=== PATIENT | male | born 1945 | race Two or more races ===

== ENCOUNTER → 2023-01-29 11:20 | Outpatient (CLI) | payer OTHER | END | disposition home or self-care (01) | LOC: LAB 11:20 | DX: N18.9 Chronic kidney disease, unspecified (principal) ==

== ENCOUNTER → 2023-02-04 | Outpatient (CLI) | payer OTHER | END | disposition home or self-care (01) | LOC: MRI 10:24 | DX: M54.40 Lumbago with sciatica, unspecified side (principal) | CPT/HCPCS: 72148 ==

== ENCOUNTER 2023-02-05 11:39 | Emergency (ER) | payer OTHER ==
[~2023-02-05] VITALS: Ht 172.7 cm; Wt 82.6 kg
== END 2023-02-05 19:21 | disposition designated cancer center or children's hospital (05) ==
LOC: ER 11:39
DX: I62.01 Nontraumatic acute subdural hemorrhage (principal); R42 Dizziness and giddiness; Z20.822 Contact with and (suspected) exposure to COVID-19

== ENCOUNTER 2023-03-29 10:46 | Outpatient (CLI) | payer OTHER | END 2023-03-29 11:00 | disposition home or self-care (01) | LOC: TOM 10:46 | DX: I62.03 Nontraumatic chronic subdural hemorrhage (principal); Z98.890 Other specified postprocedural states ==

== ENCOUNTER 2024-08-09 19:16 | Emergency (ER) | payer OTHER ==
[~2024-08-09] VITALS: Ht 172.7 cm; Wt 90.7 kg
[2024-08-09] MEDS ORDERED: SIMVASTATIN20 MG PO (19:23)
[2024-08-09] MEDS ORDERED: NIFEDIPINE ER30 M1 PO (19:23)
[2024-08-09] MEDS ORDERED: TAMSULOSIN HCL0.4 MG PO (19:23)
[2024-08-09] MEDS ORDERED: METOPROLOL SUCC50 MG PO (19:23)
[2024-08-09] MEDS ORDERED: CANDESARTAN CIL32 MG PO (19:23)
[2024-08-09] MEDS ORDERED: SYNTHROID125 MCG PO (19:23)
[2024-08-09] MEDS ORDERED: RISPERIDONE0.25 MG PO (19:24)
[2024-08-09 19:57] LABS: HEMATOCRIT 39.7 % (39.0-48.0); HEMOGLOBIN 13.3 g/dL (13-16.00); MEAN CELL VOLUME 92.5 fL (80.0-100.00); MEAN CORPUSCULAR HGB CONC 33.6 g/dl (32.0-36.0); PLATELET COUNT 180 K/uL (150-450); RED BLOOD COUNT 4.29 M/uL (4.00-6.00); RED CELL DISTRIBUTION WIDTH 14.2 % (11.5-14.5)
[2024-08-09] MEDS ORDERED: KETOROLAC TROMETHAMINE 60 MG VIAL IM ONE ×2 (22:04→22:15)
== END 2024-08-09 23:37 | disposition home or self-care (01) ==
LOC: ER 19:16
PROVIDERS: Emergency Medicine
DX: S09.8XXA Other specified injuries of head, initial encounter (principal); W19.XXXA Unspecified fall, initial encounter; Y93.89 Activity, other specified; Y92.89 Other specified places as the place of occurrence of the external cause; Y99.8 Other external cause status; I10 Essential (primary) hypertension
CPT/HCPCS: 36415; 70450; 70486; 71111; 72040; 96372; 99284; J1885

== ENCOUNTER → 2024-09-05 | Emergency (ER) | payer OTHER ==
[~2024-09-05] VITALS: Ht 165.1 cm; Wt 86.2 kg
[~2024-09-05] MED LIST: ARICEPT5 MG; ATACAND4 MG; CANDESARTAN CIL32 MG PO; CITALOPRAM HBR10 MG PO; COZAAR25 MG; FLONASE16 GM NS; MAXIMUM D3325 MCG PO; METOPROLOL SUCC50 MG PO; NIFEDIPINE ER30 M1 PO; RISPERIDONE0.25 MG PO; SIMVASTATIN20 MG PO; SIMVASTATIN5 MG; SYNTHROID125 MCG PO; TAMS0.4C; TAMSULOSIN HCL0.4 MG PO
[2024-09-05 23:15] LABS: HEMATOCRIT 38.9 % (39.0-48.0); HEMOGLOBIN 13.4 g/dL (13-16.00); MEAN CELL VOLUME 91.1 fL (80.0-100.00); MEAN CORPUSCULAR HEMOGLOBIN 31.4 pg (27.00-32.0); MEAN CORPUSCULAR HGB CONC 34.4 g/dl (32.0-36.0); PLATELET COUNT 180 K/uL (150-450); RED BLOOD COUNT 4.27 M/uL (4.00-6.00); RED CELL DISTRIBUTION WIDTH 13.8 % (11.5-14.5)
[2024-09-05 23:36] LABS: ALBUMIN 3.4 gm/dL (3.4-5.0); BILIRUBIN TOTAL 0.41 mg/dL (0.3-1.2); CALCIUM 8.9 mg/dL (8.5-10.1); CREATININE SERUM 1.03 mg/dL (0.70-1.30); GFR 69.66; GLOBULINA 3.1 G/DL (2.4-3.5); POTASSIUM 4.55 mEq/L (3.5-5.1); TOTAL PROTEIN 6.5 gm/dL (6.4-8.2)
[2024-09-06 00:03] LABS: URINE APPEARANCE Clear; URINE BILIRRUBIN Negative (NEGATIVE); URINE BLOOD Negative; URINE COLOR Yellow; URINE GLUCOSE Negative (NEGATIVE); URINE KETONE Negative (NEGATIVE); URINE LEUKOCYTE Negative; URINE NITRATE Negative; URINE PROTEIN Negative (NEGATIVE); URINE UROBILINOGEN 0.2 E.U./dl
[2024-09-06 00:06] LABS: URINE BACTERIA 2.5 uL (0.0-1933); URINE EPITHELIAL CELLS 1.3 uL (0.0-38.8); URINE RBC 3.2 uL (0.0-20.8); URINE WBC 2.6 uL (0.0-23.2)
[2024-09-06 01:07] LABS: INR 1.03; PROTHROMBIN TIME 11.2 SECONDS (9.0-11.5)
== END | disposition left against medical advice (07) ==
LOC: ER 22:24
PROVIDERS: General Practice
DX: I62.00 Nontraumatic subdural hemorrhage, unspecified (principal); G30.8 Other Alzheimer's disease; F02.80 Dementia in other diseases classified elsewhere, unspecified severity, without behavioral disturbance, psychotic disturbance, mood disturbance, and anxiety; E78.00 Pure hypercholesterolemia, unspecified; I10 Essential (primary) hypertension; N40.0 Benign prostatic hyperplasia without lower urinary tract symptoms; Z20.822 Contact with and (suspected) exposure to COVID-19

== ENCOUNTER → 2024-10-02 | Emergency (ER) | payer OTHER ==
[~2024-10-02] VITALS: Ht 170.2 cm; Wt 90.7 kg
[2024-10-02 23:28] LABS: HEMATOCRIT 40.1 % (39.0-48.0); HEMOGLOBIN 13.5 g/dL (13-16.00); MEAN CELL VOLUME 92.3 fL (80.0-100.00); MEAN CORPUSCULAR HEMOGLOBIN 31.1 pg (27.00-32.0); MEAN CORPUSCULAR HGB CONC 33.7 g/dl (32.0-36.0); PLATELET COUNT 193 K/uL (150-450); RED BLOOD COUNT 4.34 M/uL (4.00-6.00); RED CELL DISTRIBUTION WIDTH 13.6 % (11.5-14.5)
[2024-10-02 23:46] LABS: CALCIUM 9.1 mg/dL (8.5-10.1); CREATININE SERUM 1.76 mg/dL (0.70-1.30); GFR 37.54; POTASSIUM 4.06 mEq/L (3.5-5.1)
[2024-10-03 10:48] LABS: INR 1.05; PARTIAL THROMBOPLASTIN TIME 23.8 SECONDS (22.0-34.0); PROTHROMBIN TIME 11.4 SECONDS (9.0-11.5)
[2024-10-03 11:52] LABS: PH,URINE 5.5 (5.0-8.0); URINE APPEARANCE Clear; URINE BILIRRUBIN Negative (NEGATIVE); URINE BLOOD Negative; URINE COLOR Yellow; URINE GLUCOSE Negative (NEGATIVE); URINE KETONE Trace (NEGATIVE); URINE LEUKOCYTE Negative; URINE NITRATE Negative; URINE PROTEIN Negative (NEGATIVE); URINE UROBILINOGEN 0.2 E.U./dl
[2024-10-03 11:53] LABS: URINE BACTERIA 35.2 uL (0.0-1933); URINE EPITHELIAL CELLS 2.6 uL (0.0-38.8); URINE RBC 13.7 uL (0.0-20.8); URINE WBC 2.4 uL (0.0-23.2)
[2024-10-03 11:55] LABS: URINE CAST 0.76 uL (0.0-1.40)
== END | disposition left against medical advice (07) ==
LOC: ER 21:54
PROVIDERS: Emergency Medicine
DX: R41.0 Disorientation, unspecified (principal); Z20.822 Contact with and (suspected) exposure to COVID-19; I10 Essential (primary) hypertension; E03.8 Other specified hypothyroidism

== ENCOUNTER 2025-02-28 21:20 | Emergency (ER) | payer OTHER ==
[~2025-02-28] VITALS: Ht 172.7 cm; Wt 81.6 kg
[2025-02-28] MEDS ORDERED: RISPERDAL1 MG/1 ML (21:46)
[2025-02-28] MEDS ORDERED: SEROQUEL25 MG (21:46)
[2025-02-28 22:34] LABS: HEMOGLOBIN 14.7 g/dL (13-16.00); MEAN CELL VOLUME 89.9 fL (80.0-100.00); MEAN CORPUSCULAR HEMOGLOBIN 30.7 pg (27.00-32.0); MEAN CORPUSCULAR HGB CONC 34.2 g/dl (32.0-36.0); PLATELET COUNT 236 K/uL (150-450); RED BLOOD COUNT 4.78 M/uL (4.00-6.00); RED CELL DISTRIBUTION WIDTH 13.6 % (11.5-14.5)
[2025-02-28 22:55] LABS: ALBUMIN 3.2 gm/dL (3.4-5.0); BILIRUBIN TOTAL 0.3 mg/dL (0.3-1.2); CREATININE SERUM 1.08 mg/dL (0.70-1.30); GFR 65.95; GLOBULINA 3.7 G/DL (2.4-3.5); POTASSIUM 4.25 mEq/L (3.5-5.1); TOTAL PROTEIN 6.9 gm/dL (6.4-8.2)
[2025-02-28 23:21] LABS: COVID-19 AG NEGATIVE (NEGATIVE); INFLUENZA A AG NEGATIVE (NEGATIVE)
[2025-02-28 23:24] LABS: ABG PH 7.439 (7.35-7.45); ABG PO2 68.4 mmHg (80-100); ABG pCO2 39.9 mmHg (35-45); BASE EXCESS 2.2 mmol/l; BICARBONATE 26.4 mmol/l (23-25); SaO2 94.2 %; Tco2 27.6 mmol/l
[2025-02-28 23:28] LABS: allen test SATISFACTORY; mode ROOM AIR; o2 21 %; puncture site RADIAL RIGHT
== END 2025-03-01 11:53 | disposition home or self-care (01) ==
LOC: ER → EDBD 21:20 → ER 21:20
PROVIDERS: Emergency Medicine
DX: J40 Bronchitis, not specified as acute or chronic (principal); G30.8 Other Alzheimer's disease; F02.80 Dementia in other diseases classified elsewhere, unspecified severity, without behavioral disturbance, psychotic disturbance, mood disturbance, and anxiety; I10 Essential (primary) hypertension; Z85.828 Personal history of other malignant neoplasm of skin; Z20.822 Contact with and (suspected) exposure to COVID-19

== ENCOUNTER 2025-03-08 19:01 | Inpatient (IN) | payer OTHER ==
[~2025-03-08] VITALS: Ht 152.4 cm; Wt 77.1 kg
[~2025-03-08 19:01] MED LIST changes: +RISPERDAL1 MG/1 ML; +SEROQUEL25 MG
[2025-03-08 20:09] LABS: HEMATOCRIT 43.5 % (39.0-48.0); HEMOGLOBIN 14.4 g/dL (13-16.00); MEAN CELL VOLUME 90.9 fL (80.0-100.00); MEAN CORPUSCULAR HEMOGLOBIN 30.1 pg (27.00-32.0); MEAN CORPUSCULAR HGB CONC 33.1 g/dl (32.0-36.0); PLATELET COUNT 239 K/uL (150-450); RED BLOOD COUNT 4.78 M/uL (4.00-6.00); RED CELL DISTRIBUTION WIDTH 13.9 % (11.5-14.5)
[2025-03-08 20:44] LABS: ALBUMIN 2.8 gm/dL (3.4-5.0); BILIRUBIN TOTAL 0.52 mg/dL (0.3-1.2); CALCIUM 9.1 mg/dL (8.5-10.1); CREATININE SERUM 1.76 mg/dL (0.70-1.30); GFR 37.54; GLOBULINA 4.6 G/DL (2.4-3.5); POTASSIUM 5.51 mEq/L (3.5-5.1); TOTAL PROTEIN 7.4 gm/dL (6.4-8.2)
[2025-03-08] MEDS ORDERED: CEFTRIAXONE SODIUM 1,000 MG VIAL ONE (21:12)
[2025-03-08] MEDS ORDERED: CEFTRIAXONE SODIUM 1,000 MG VIAL IV ONE (21:15)
[2025-03-08 21:24] LABS: INR 1.1; PARTIAL THROMBOPLASTIN TIME 27.2 SECONDS (22.0-34.0); PROTHROMBIN TIME 11.9 SECONDS (9.0-11.5)
[2025-03-08 21:37] LABS: ABG PH 7.425 (7.35-7.45); ABG PO2 74.7 mmHg (80-100); ABG pCO2 39.9 mmHg (35-45); BASE EXCESS 1.2 mmol/l; BICARBONATE 25.5 mmol/l (23-25); Tco2 26.8 mmol/l; allen test SATISFACTORY; mode ROOM AIR; o2 21 %; puncture site RADIAL RIGHT
[2025-03-08 21:38] LABS: SaO2 95.2 %
[2025-03-08] MEDS ORDERED: 0.9 % SODIUM CHLORIDE 1,000 ML IV ONE (21:45)
[2025-03-08 21:52] LABS: URINE APPEARANCE Cloudy; URINE BILIRRUBIN Small (NEGATIVE); URINE BLOOD Negative; URINE COLOR Dark Yellow; URINE GLUCOSE Negative (NEGATIVE); URINE KETONE Negative (NEGATIVE); URINE LEUKOCYTE Negative; URINE NITRATE Negative; URINE PROTEIN 30 (NEGATIVE)
[2025-03-08 21:56] LABS: URINE BACTERIA 36.7 uL (0.0-1933); URINE CAST 15.17 uL (0.0-1.40); URINE EPITHELIAL CELLS 32.2 uL (0.0-38.8); URINE RBC 16.6 uL (0.0-20.8); URINE WBC 20.5 uL (0.0-23.2)
[2025-03-08] MEDS ORDERED: SODIUM POLYSTYRENE SULFONATE 30G/8 TSP PO ONE (22:15)
[2025-03-08] MEDS ORDERED: 0.9 % SODIUM CHLORIDE 1,000 ML IV SCH (23:15)
[2025-03-09] MEDS ORDERED: IPRATROPIUM BROMIDE 0.5 MG/2.5 ML AMPUL.NEB IH SCH (01:00)
[2025-03-09] MEDS ORDERED: LEVOTHYROXINE SODIUM 125 MCG TABLET PO SCH (06:00)
[2025-03-09 06:21] LABS: HEMATOCRIT 37.7 % (39.0-48.0); HEMOGLOBIN 12.9 g/dL (13-16.00); MEAN CELL VOLUME 89.8 fL (80.0-100.00); MEAN CORPUSCULAR HEMOGLOBIN 30.7 pg (27.00-32.0); MEAN CORPUSCULAR HGB CONC 34.2 g/dl (32.0-36.0); PLATELET COUNT 193 K/uL (150-450); RED CELL DISTRIBUTION WIDTH 13.7 % (11.5-14.5)
[2025-03-09 07:58] LABS: ALBUMIN 2.5 gm/dL (3.4-5.0); BILIRUBIN TOTAL 0.39 mg/dL (0.3-1.2); CALCIUM 8.5 mg/dL (8.5-10.1); CREATININE SERUM 1.46 mg/dL (0.70-1.30); GFR 46.57; GLOBULINA 3.3 G/DL (2.4-3.5); POTASSIUM 4.48 mEq/L (3.5-5.1); T4 FREE 1.04 NG/ML (0.76-1.46); TOTAL PROTEIN 5.8 gm/dL (6.4-8.2)
[2025-03-09 08:00] LABS: TSH 5.02 uIU/mL (0.358-3.74)
[2025-03-09 08:53] VITALS: BP 179/71
[2025-03-09] MEDS ORDERED: SODIUM POLYSTYRENE SULFONATE 15 G/4 TSP TSP PO SCH (09:00)
[2025-03-09] MEDS ORDERED: TAMSULOSIN HCL 0.4 MG CAP PO SCH (09:00)
[2025-03-09] MEDS ORDERED: CANDESARTAN CILEXETIL 16 MG TABLET PO SCH (09:00)
[2025-03-09] MEDS ORDERED: QUETIAPINE FUMARATE 25 MG TABLET PO SCH (09:00)
[2025-03-09] MEDS ORDERED: SODIUM CHLORIDE 0.45 % 1,000 ML IV SCH (11:00)
[2025-03-09] MEDS ORDERED: PANTOPRAZOLE SODIUM 40 MG TABLET.DR PO NR (12:00)
[2025-03-09] MEDS ORDERED: QUETIAPINE FUMARATE 25 MG TABLET PO PRN (12:09)
[2025-03-09] MEDS ORDERED: ENALAPRILAT DIHYDRATE 1.25 MG/ML VIAL IV PRN (15:15)
[2025-03-09] MEDS ORDERED: DONEPEZIL HCL 10 MG TABLET PO SCH (17:00)
[2025-03-09 18:03] VITALS: BP 160/85; O2SAT 95
[2025-03-10 02:41] VITALS: BP 157/76; O2SAT 95
[2025-03-10 06:27] LABS: MEAN CELL VOLUME 89.3 fL (80.0-100.00); MEAN CORPUSCULAR HEMOGLOBIN 30.7 pg (27.00-32.0); MEAN CORPUSCULAR HGB CONC 34.4 g/dl (32.0-36.0); PLATELET COUNT 201 K/uL (150-450); RED BLOOD COUNT 4.25 M/uL (4.00-6.00); RED CELL DISTRIBUTION WIDTH 13.4 % (11.5-14.5)
[2025-03-10 06:53] LABS: ALBUMIN 2.5 gm/dL (3.4-5.0); BILIRUBIN TOTAL 0.51 mg/dL (0.3-1.2); CALCIUM 8.6 mg/dL (8.5-10.1); CREATININE SERUM 0.99 mg/dL (0.70-1.30); GFR 72.92; GLOBULINA 3.7 G/DL (2.4-3.5); MAGNESIUM 2.2 mg/dL (1.8-2.4); POTASSIUM 4.14 mEq/L (3.5-5.1); TOTAL PROTEIN 6.2 gm/dL (6.4-8.2)
[2025-03-10] MEDS ORDERED: PANTOPRAZOLE SODIUM 40 MG TABLET.DR PO SCH (09:00)
[2025-03-10] MEDS ORDERED: DEXTROSE 5 % IN WATER 1,000 ML IV SCH (09:45)
[2025-03-10 10:01] VITALS: BP 141/81; O2SAT 97
[2025-03-10] MEDS ORDERED: MULTIVIT-MIN/IRON FUM/FOLIC AC 1 TAB TABLET PO NR (12:00)
[2025-03-10] MEDS ORDERED: AMINO ACIDS/PROTEIN HYDROLYS 30 ML BLIST.PACK PO SCH (13:00)
[2025-03-10 16:20] VITALS: BP 157/82; O2SAT 95
[2025-03-10] MEDS ORDERED: ACETAMINOPHEN 500 MG GEL..CAP PO PRN (18:45)
[2025-03-11 00:18] LABS: CALCIUM 9.2 mg/dL (8.5-10.1); CREATININE SERUM 1.11 mg/dL (0.70-1.30); GFR 63.9; POTASSIUM 4.26 mEq/L (3.5-5.1)
[2025-03-11 01:57] VITALS: BP 141/90; O2SAT 94
[2025-03-11 07:02] LABS: HEMATOCRIT 38.9 % (39.0-48.0); HEMOGLOBIN 13.3 g/dL (13-16.00); MEAN CELL VOLUME 89.6 fL (80.0-100.00); MEAN CORPUSCULAR HEMOGLOBIN 30.7 pg (27.00-32.0); MEAN CORPUSCULAR HGB CONC 34.2 g/dl (32.0-36.0); PLATELET COUNT 225 K/uL (150-450); RED BLOOD COUNT 4.34 M/uL (4.00-6.00)
[2025-03-11 07:40] LABS: ALBUMIN 2.4 gm/dL (3.4-5.0); BILIRUBIN TOTAL 0.52 mg/dL (0.3-1.2); CALCIUM 8.7 mg/dL (8.5-10.1); CREATININE SERUM 0.88 mg/dL (0.70-1.30); GFR 83.54; GLOBULINA 3.9 G/DL (2.4-3.5); MAGNESIUM 2.2 mg/dL (1.8-2.4); PHOSPHOROUS 2.4 mg/dL (2.5-4.9); POTASSIUM 4.19 mEq/L (3.5-5.1); TOTAL PROTEIN 6.3 gm/dL (6.4-8.2)
[2025-03-11] MEDS ORDERED: MULTIVIT-MIN/IRON FUM/FOLIC AC 1 TAB TABLET PO SCH (09:00)
[2025-03-11] MEDS ORDERED: CANDESARTAN CILEXETIL 32 MG TABLET PO SCH (09:00)
[2025-03-11] MEDS ORDERED: ENOXAPARIN SODIUM 40 MG/0.4 ML SYRINGE SUBCUTANEO SCH (09:00)
[2025-03-11 10:15] VITALS: BP 146/86; O2SAT 98
[2025-03-11 17:28] VITALS: BP 120/90; O2SAT 94
[2025-03-11 18:47] LABS: INFLUENZA A AG NEGATIVE (NEGATIVE); INFLUENZA B AG NEGATIVE (NEGATIVE)
[2025-03-11] MEDS ORDERED: ONDANSETRON HCL 2 MG/ML VIAL IV PRN (20:45)
[2025-03-12 02:43] VITALS: BP 85/6; O2SAT 99
[2025-03-12 04:13] VITALS: BP 110/75; O2SAT 97
[2025-03-12 09:53] VITALS: BP 118/73; O2SAT 97
[2025-03-12] MEDS ORDERED: DEXTROSE 5 %-0.45 % SOD CHLORD 1,000 ML IV SCH (15:00)
[2025-03-12 16:44] VITALS: BP 102/65
[2025-03-12 17:49] LABS: HEMATOCRIT 40.4 % (39.0-48.0); HEMOGLOBIN 13.4 g/dL (13-16.00); MEAN CELL VOLUME 91.8 fL (80.0-100.00); MEAN CORPUSCULAR HEMOGLOBIN 30.5 pg (27.00-32.0); MEAN CORPUSCULAR HGB CONC 33.2 g/dl (32.0-36.0); PLATELET COUNT 239 K/uL (150-450); RED CELL DISTRIBUTION WIDTH 13.9 % (11.5-14.5)
[2025-03-12 18:12] LABS: ALBUMIN 2.5 gm/dL (3.4-5.0); BILIRUBIN TOTAL 0.43 mg/dL (0.3-1.2); CALCIUM 8.8 mg/dL (8.5-10.1); CREATININE SERUM 2.19 mg/dL (0.70-1.30); GFR 29.17; MAGNESIUM 2.3 mg/dL (1.8-2.4); PHOSPHOROUS 2.8 mg/dL (2.5-4.9); POTASSIUM 4.16 mEq/L (3.5-5.1); TOTAL PROTEIN 6.5 gm/dL (6.4-8.2)
[2025-03-13 01:26] VITALS: BP 109/74; O2SAT 92
[2025-03-13 08:10] VITALS: BP 110/68; O2SAT 93
[2025-03-13] MEDS ORDERED: hydrALAZINE HCL 20 MG VIAL IV PRN (09:00)
[2025-03-13] MEDS ORDERED: SODIUM CHLORIDE 0.45 % 1,000 ML IV SCH (11:00)
[2025-03-13] MEDS ORDERED: 0.9 % SODIUM CHLORIDE 1,000 ML IV SCH (11:00)
[2025-03-13 16:53] VITALS: BP 126/80
[2025-03-13] MEDS ORDERED: LOPERAMIDE HCL 2 MG CAPSULE PO NR (17:00)
[2025-03-14 01:47] VITALS: BP 125/75
[2025-03-14] MEDS ORDERED: LEVOTHYROXINE SODIUM 125 MCG TABLET PO SCH (06:00)
[2025-03-14] MEDS ORDERED: LEVOTHYROXINE SODIUM 150 MCG TABLET PO SCH (06:00)
[2025-03-14 07:44] LABS: CALCIUM 8.1 mg/dL (8.5-10.1); CREATININE SERUM 0.98 mg/dL (0.70-1.30); GFR 73.78; POTASSIUM 3.45 mEq/L (3.5-5.1)
[2025-03-14 08:48] VITALS: BP 150/64; O2SAT 97
[2025-03-14] MEDS ORDERED: DEXTROSE 5 %-0.45 % SOD CHLORD 1,000 ML IV SCH (11:00)
[2025-03-14] MEDS ORDERED: PAROXETINE HCL 20 MG TABLET PO NR (11:30)
[2025-03-14] MEDS ORDERED: POTASSIUM CHLORIDE IN WATER 40 MEQ/100 ML PIGGYBAG IV SCH (13:00)
[2025-03-14] MEDS ORDERED: LORazepam 2 MG/ML VIAL IV PRN (15:00)
[2025-03-14 17:06] VITALS: BP 137/80
[2025-03-14] MEDS ORDERED: RISPERIDONE 1 MG TABLET PO SCH (21:00)
[2025-03-15 01:04] VITALS: BP 141/78; O2SAT 96
[2025-03-15 08:18] VITALS: BP 165/72; O2SAT 96
[2025-03-15] MEDS ORDERED: PAROXETINE HCL 20 MG TABLET PO SCH (09:00)
[2025-03-15] MEDS ORDERED: FAMOTIDINE/PF 20 MG/2 ML VIAL IV SCH (09:32)
[2025-03-15] MEDS ORDERED: LEVOTHYROXINE SODIUM 100 MCG/VIAL VIAL IV SCH (12:00)
[2025-03-15 12:01] LABS: CALCIUM 8.6 mg/dL (8.5-10.1); GFR 13.07; PHOSPHOROUS 3.9 mg/dL (2.5-4.9); POTASSIUM 4.99 mEq/L (3.5-5.1)
[2025-03-15 12:30] LABS: CREATININE SERUM 4.39 mg/dL (0.70-1.30)
[2025-03-15] MEDS ORDERED: AMINO ACIDS 4.25 %/DEXTROSE 5% 1,000 ML PERIFERAL SCH (17:00)
[2025-03-15 17:07] VITALS: BP 115/60
[2025-03-17 02:00] VITALS: BP 174/101; O2SAT 96
[2025-03-17 07:42] LABS: ALBUMIN 1.9 gm/dL (3.4-5.0); BILIRUBIN TOTAL 0.34 mg/dL (0.3-1.2); CREATININE SERUM 0.82 mg/dL (0.70-1.30); GFR 90.63; GLOBULINA 3.4 G/DL (2.4-3.5); MAGNESIUM 1.7 mg/dL (1.8-2.4); POTASSIUM 3.54 mEq/L (3.5-5.1); TOTAL PROTEIN 5.3 gm/dL (6.4-8.2)
[2025-03-17 09:14] VITALS: BP 129/79
[2025-03-17 17:57] VITALS: BP 127/70; O2SAT 96
[2025-03-18 02:23] VITALS: BP 117/68; O2SAT 96
[2025-03-18 09:35] VITALS: BP 145/79; O2SAT 94
[2025-03-18] MEDS ORDERED: DEXTROSE 5 % IN WATER 1,000 ML IV SCH (14:45)
[2025-03-18 16:57] VITALS: BP 140/60; O2SAT 99
[2025-03-19 03:08] VITALS: BP 124/64; O2SAT 98
[2025-03-19 04:34] LABS: CALCIUM 7.8 mg/dL (8.5-10.1); CREATININE SERUM 0.72 mg/dL (0.70-1.30); GFR 105.31; MAGNESIUM 1.5 mg/dL (1.8-2.4); PHOSPHOROUS 2.4 mg/dL (2.5-4.9); POTASSIUM 3.45 mEq/L (3.5-5.1)
[2025-03-19 06:42] LABS: ALBUMIN 1.6 gm/dL (3.4-5.0); CALCIUM 7.6 mg/dL (8.5-10.1); CREATININE SERUM 0.65 mg/dL (0.70-1.30); GFR 118.5; PHOSPHOROUS 3.1 mg/dL (2.5-4.9); POTASSIUM 3.25 mEq/L (3.5-5.1)
[2025-03-19 06:58] LABS: HEMATOCRIT 30.7 % (39.0-48.0); HEMOGLOBIN 10.2 g/dL (13-16.00); MEAN CELL VOLUME 89.1 fL (80.0-100.00); MEAN CORPUSCULAR HEMOGLOBIN 29.8 pg (27.00-32.0); MEAN CORPUSCULAR HGB CONC 33.4 g/dl (32.0-36.0); PLATELET COUNT 268 K/uL (150-450); RED BLOOD COUNT 3.44 M/uL (4.00-6.00); RED CELL DISTRIBUTION WIDTH 13.2 % (11.5-14.5)
[2025-03-19 07:58] VITALS: BP 130/72
[2025-03-19] MEDS ORDERED: POTASSIUM CHLORIDE IN WATER 100 ML IV NR (12:45)
[2025-03-19 18:41] VITALS: BP 148/82; O2SAT 95
[2025-03-20 02:13] VITALS: BP 152/74; O2SAT 98
[2025-03-20 09:57] VITALS: BP 160/71; O2SAT 94
[2025-03-20 17:01] VITALS: BP 143/71
[2025-03-21 03:31] VITALS: BP 153/75; O2SAT 95
[2025-03-21 09:10] VITALS: BP 156/76; O2SAT 94
[2025-03-21] MEDS ORDERED: ACETAMINOPHEN 500 MG GEL..CAP PO PRN (16:30)
[2025-03-21 17:29] VITALS: BP 140/72
[2025-03-22 03:41] VITALS: BP 174/84; O2SAT 95
[2025-03-22 08:33] VITALS: BP 123/69
[2025-03-22] MEDS ORDERED: CLONIDINE HCL TD SCH (09:00)
[2025-03-22] MEDS ORDERED: [UNRECOGNIZED DRUG - OTHER] TD SCH (09:00)
[2025-03-22 18:00] VITALS: BP 122/71; O2SAT 100
[2025-03-22 22:15] LABS: HEMATOCRIT 33.7 % (39.0-48.0); HEMOGLOBIN 11.3 g/dL (13-16.00); MEAN CORPUSCULAR HEMOGLOBIN 29.2 pg (27.00-32.0); MEAN CORPUSCULAR HGB CONC 33.6 g/dl (32.0-36.0); PLATELET COUNT 399 K/uL (150-450); RED BLOOD COUNT 3.87 M/uL (4.00-6.00); RED CELL DISTRIBUTION WIDTH 13.5 % (11.5-14.5)
[2025-03-22 22:35] LABS: ALBUMIN 1.8 gm/dL (3.4-5.0); BILIRUBIN TOTAL 0.42 mg/dL (0.3-1.2); CALCIUM 8.4 mg/dL (8.5-10.1); CREATININE SERUM 0.82 mg/dL (0.70-1.30); GFR 90.63; GLOBULINA 4.2 G/DL (2.4-3.5); POTASSIUM 3.2 mEq/L (3.5-5.1)
[2025-03-22 22:36] LABS: PHOSPHOROUS 2.3 mg/dL (2.5-4.9)
[2025-03-23] VITALS: BP 148/74; O2SAT 95
[2025-03-23] MEDS ORDERED: VANCOMYCIN HCL 1,000 MG VIAL IV SCH (09:00)
[2025-03-23] MEDS ORDERED: CEFTRIAXONE SODIUM 2,000 MG in 0.9 % SODIUM CHLORIDE 100 ML IV SCH (09:00)
[2025-03-23] MEDS ORDERED: POTASSIUM CHLORIDE IN WATER 100 ML IV SCH (09:00)
[2025-03-23] MEDS ORDERED: EMOLLIENTS 6 OZ BOTTLE TOP SCH (09:00)
[2025-03-23 09:09] VITALS: BP 150/84; O2SAT 97
[2025-03-23 16:19] LABS: URINE APPEARANCE Cloudy; URINE BILIRRUBIN Negative (NEGATIVE); URINE BLOOD Large; URINE CAST 3.68 uL (0.0-1.40); URINE COLOR Yellow; URINE EPITHELIAL CELLS 29.4 uL (0.0-38.8); URINE GLUCOSE Negative (NEGATIVE); URINE KETONE Negative (NEGATIVE); URINE LEUKOCYTE Moderate; URINE NITRATE Positive; URINE PROTEIN 30 (NEGATIVE); URINE RBC 148.1 uL (0.0-20.8); URINE WBC 360.5 uL (0.0-23.2)
[2025-03-23 16:52] LABS: URINE BACTERIA > 9821.5 uL (0.0-1933)
[2025-03-23 20:49] VITALS: BP 115/89
[2025-03-24 01:11] VITALS: BP 130/88; O2SAT 99
[2025-03-24 08:00] VITALS: BP 143/82; O2SAT 95
[2025-03-24] MEDS ORDERED: CEFTRIAXONE SODIUM 2,000 MG VIAL ONE (08:19)
[2025-03-24 16:29] LABS: HEMATOCRIT 35.6 % (39.0-48.0); HEMOGLOBIN 11.7 g/dL (13-16.00); MEAN CELL VOLUME 88.4 fL (80.0-100.00); MEAN CORPUSCULAR HGB CONC 32.8 g/dl (32.0-36.0); PLATELET COUNT 378 K/uL (150-450); RED BLOOD COUNT 4.02 M/uL (4.00-6.00); RED CELL DISTRIBUTION WIDTH 13.5 % (11.5-14.5)
[2025-03-24 18:28] VITALS: BP 108/77; O2SAT 96
[2025-03-24 18:37] LABS: CALCIUM 8.3 mg/dL (8.5-10.1); CREATININE SERUM 1.26 mg/dL (0.70-1.30); GFR 55.21; MAGNESIUM 1.7 mg/dL (1.8-2.4); PHOSPHOROUS 2.4 mg/dL (2.5-4.9); POTASSIUM 3.41 mEq/L (3.5-5.1)
[2025-03-25 03:01] VITALS: BP 148/85
[2025-03-25] MEDS ORDERED: CEFTRIAXONE SODIUM 2,000 MG VIAL ONE (08:14)
[2025-03-25] MEDS ORDERED: MEROPENEM 500 MG/VIAL VIAL IV STA (09:08)
[2025-03-25 09:11] VITALS: BP 127/70; O2SAT 100
[2025-03-25] MEDS ORDERED: POTASSIUM CHLORIDE IN WATER 100 ML IV SCH (09:21)
[2025-03-25] MEDS ORDERED: MEROPENEM 500 MG/VIAL VIAL IV SCH ×2 (17:00→18:00)
[2025-03-25 18:04] VITALS: BP 127/78; O2SAT 96
[2025-03-25] MEDS ORDERED: ACETAMINOPHEN 500 MG GEL..CAP PO SCH (20:00)
[2025-03-26 00:18] VITALS: BP 119/76
[2025-03-26] MEDS ORDERED: LEVOTHYROXINE SODIUM 150 MCG TABLET PO SCH (06:00)
[2025-03-26 09:35] VITALS: BP 126/83; O2SAT 96
[2025-03-26 10:10] LABS: HEMATOCRIT 32.1 % (39.0-48.0); HEMOGLOBIN 10.6 g/dL (13-16.00); MEAN CELL VOLUME 89.6 fL (80.0-100.00); MEAN CORPUSCULAR HEMOGLOBIN 29.6 pg (27.00-32.0); MEAN CORPUSCULAR HGB CONC 33.1 g/dl (32.0-36.0); PLATELET COUNT 298 K/uL (150-450); RED BLOOD COUNT 3.58 M/uL (4.00-6.00); RED CELL DISTRIBUTION WIDTH 13.5 % (11.5-14.5)
[2025-03-26 17:23] VITALS: BP 138/82; O2SAT 95
[2025-03-27 02:18] VITALS: BP 136/71; O2SAT 99
[2025-03-27 09:31] LABS: HEMATOCRIT 31.4 % (39.0-48.0); HEMOGLOBIN 10.7 g/dL (13-16.00); MEAN CELL VOLUME 87.3 fL (80.0-100.00); MEAN CORPUSCULAR HEMOGLOBIN 29.8 pg (27.00-32.0); MEAN CORPUSCULAR HGB CONC 34.1 g/dl (32.0-36.0); PLATELET COUNT 280 K/uL (150-450); RED BLOOD COUNT 3.59 M/uL (4.00-6.00); RED CELL DISTRIBUTION WIDTH 13.6 % (11.5-14.5)
[2025-03-27 10:21] LABS: ALBUMIN 1.4 gm/dL (3.4-5.0); CALCIUM 7.9 mg/dL (8.5-10.1); CREATININE SERUM 1.15 mg/dL (0.70-1.30); GFR 61.34; MAGNESIUM 2.1 mg/dL (1.8-2.4); PHOSPHOROUS 3.1 mg/dL (2.5-4.9); POTASSIUM 3.27 mEq/L (3.5-5.1)
[2025-03-27 15:40] VITALS: BP 161/97; O2SAT 98
[2025-03-28 02:32] VITALS: BP 110/66; O2SAT 95
[2025-03-28 09:21] VITALS: BP 129/66; O2SAT 96
[2025-03-28 18:00] VITALS: BP 123/73; O2SAT 96
[2025-03-29 01:57] VITALS: BP 132/73
[2025-03-29 06:20] LABS: HEMATOCRIT 31.4 % (39.0-48.0); HEMOGLOBIN 10.4 g/dL (13-16.00); MEAN CELL VOLUME 87.9 fL (80.0-100.00); MEAN CORPUSCULAR HEMOGLOBIN 29.2 pg (27.00-32.0); MEAN CORPUSCULAR HGB CONC 33.2 g/dl (32.0-36.0); PLATELET COUNT 359 K/uL (150-450); RED BLOOD COUNT 3.57 M/uL (4.00-6.00); RED CELL DISTRIBUTION WIDTH 13.8 % (11.5-14.5)
[2025-03-29] MEDS ORDERED: FAMOTIDINE/PF 20 MG in 0.9 % SODIUM CHLORIDE 8 ML IV PUSH SCH (09:00)
[2025-03-29] MEDS ORDERED: FAMOTIDINE/PF 20 MG/2 ML VIAL ONE (09:00)
[2025-03-29] MEDS ORDERED: HALOPERIDOL LACTATE 5 MG/ML AMPUL IM SCH (09:00)
[2025-03-29] MEDS ORDERED: LEVOTHYROXINE SODIUM 100 MCG/VIAL VIAL IV SCH (09:00)
[2025-03-29] MEDS ORDERED: BUDESONIDE 0.5 MG/2 ML AMPUL.NEB IH SCH (09:00)
[2025-03-29 11:33] VITALS: BP 130/77; O2SAT 95
[2025-03-29 13:09] LABS: CALCIUM 7.8 mg/dL (8.5-10.1); CREATININE SERUM 0.88 mg/dL (0.70-1.30); GFR 83.54; POTASSIUM 3.74 mEq/L (3.5-5.1)
[2025-03-29 13:14] LABS: PHOSPHOROUS 2.9 mg/dL (2.5-4.9)
[2025-03-29] MEDS ORDERED: METRONIDAZOLE/SODIUM CHLORIDE 500 MG/100 ML PIGGYBACK IV SCH (17:00)
[2025-03-29 18:12] VITALS: BP 122/70; O2SAT 96
[2025-03-29] MEDS ORDERED: DIPHENHYDRAMINE HCL 50 MG/ML VIAL 1ML IM SCH (21:00)
[2025-03-29] MEDS ORDERED: CEFEPIME HCL 2,000 MG VIAL IV SCH (21:00)
[2025-03-30 01:00] VITALS: BP 135/69; O2SAT 99
[2025-03-30] MEDS ORDERED: ACETAMINOPHEN 650 MG SUPP.RECT RECTAL PRN (08:15)
[2025-03-30 09:37] VITALS: BP 135/78; O2SAT 97
[2025-03-30] MEDS ORDERED: IPRATROPIUM BROMIDE 0.5 MG/2.5 ML AMPUL.NEB IH SCH (12:00)
[2025-03-30 17:33] VITALS: BP 120/66; O2SAT 95
[2025-03-31 01:21] VITALS: BP 117/68; O2SAT 95
[2025-03-31] MEDS ORDERED: KETOROLAC TROMETHAMINE 30 MG VIAL IV NR (09:15)
[2025-03-31 09:40] VITALS: BP 151/77; O2SAT 97
[2025-03-31] MEDS ORDERED: KETOROLAC TROMETHAMINE 30 MG VIAL IV SCH (14:00)
[2025-03-31 16:00] VITALS: BP 95/55; O2SAT 97
[2025-03-31] MEDS ORDERED: FAMOTIDINE/PF 20 MG/2 ML VIAL ONE (16:10)
[2025-04-01 01:39] VITALS: BP 138/66; O2SAT 97
[2025-04-01 08:00] VITALS: BP 133/67; O2SAT 98
[2025-04-01 16:16] VITALS: BP 130/79
[2025-04-02 01:11] VITALS: BP 153/76; O2SAT 95
[2025-04-02 08:28] VITALS: BP 168/71; O2SAT 97
[2025-04-02] MEDS ORDERED: 0.9 % SODIUM CHLORIDE 10 ML VIAL IJ ONE (08:44)
[2025-04-02 16:38] VITALS: BP 147/73
[2025-04-03 02:58] VITALS: BP 135/68; O2SAT 97
[2025-04-03 08:00] VITALS: BP 130/72; O2SAT 100
[2025-04-03 17:31] VITALS: BP 138/82
[2025-04-03 17:35] VITALS: BP 129/74
[2025-04-04 01:45] VITALS: BP 130/67
[2025-04-04 01:45] LABS: URINE APPEARANCE Turbid; URINE BILIRRUBIN Negative (NEGATIVE); URINE BLOOD Large; URINE COLOR Dark Yellow; URINE GLUCOSE Negative (NEGATIVE); URINE KETONE Negative (NEGATIVE); URINE LEUKOCYTE Moderate; URINE NITRATE Negative; URINE UROBILINOGEN 0.2 E.U./dl
[2025-04-04 01:49] LABS: URINE BACTERIA 1578.1 uL (0.0-1933); URINE RBC 1311.9 uL (0.0-20.8); URINE WBC 600.3 uL (0.0-23.2)
[2025-04-04 01:52] LABS: URINE CAST > 21.83 uL (0.0-1.40); URINE EPITHELIAL CELLS > 201.7 uL (0.0-38.8); URINE PROTEIN 100 (NEGATIVE)
[2025-04-04 09:58] VITALS: BP 146/78; O2SAT 98
[2025-04-04 17:21] VITALS: BP 122/80; O2SAT 94
[2025-04-04 18:53] LABS: ALBUMIN 1.1 gm/dL (3.4-5.0); BILIRUBIN TOTAL 0.27 mg/dL (0.3-1.2); CALCIUM 7.2 mg/dL (8.5-10.1); CREATININE SERUM 2.17 mg/dL (0.70-1.30); GFR 29.48; PHOSPHOROUS 3.3 mg/dL (2.5-4.9); POTASSIUM 3.22 mEq/L (3.5-5.1); TOTAL PROTEIN 5.1 gm/dL (6.4-8.2)
[2025-04-04 19:03] LABS: BASO % 0.2 % (0.1-1.2); EOS # 0.08 (0.04-0.54); EOS % 0.4 % (0.7-7.0); HEMATOCRIT 28.7 % (40.1-51.0); HEMOGLOBIN 9.9 g/dL (13.7-17.5); LYMPH # 1.34 (1.18-3.74); LYMPH % 7.1 % (19.3-53.1); MEAN CORPUSCULAR HEMOGLOBIN 29.5 pg (25.6-32.2); MONO # 0.75 (0.24-0.82); NEUT # 16.61 (1.56-6.13); NEUT % 87.4 % (34.0-71.1); PLATELET COUNT 464 K/uL (163-369); RED BLOOD COUNT 3.36 M/uL (4.63-6.08); RED CELL DISTRIBUTION WIDTH 14.2 % (11.6-14.4)
[2025-04-04] MEDS ORDERED: POTASSIUM CHLORIDE IN WATER 40 MEQ/100 ML PIGGYBAG IV SCH (23:51)
[2025-04-05 01:18] VITALS: BP 135/71
[2025-04-05] MEDS ORDERED: POTASSIUM CHLORIDE IN WATER 40 MEQ/100 ML PIGGYBAG IV ONE (01:33)
[2025-04-05] MEDS ORDERED: DEXTROSE 5 %-0.45 % SOD CHLORD 1,000 ML IV SCH (07:45)
[2025-04-05] MEDS ORDERED: POTASSIUM CHLORIDE IN WATER 40 MEQ/100 ML PIGGYBAG IV SCH (09:00)
[2025-04-05 09:46] VITALS: BP 155/66; O2SAT 96
[2025-04-05 11:54] LABS: ALBUMIN 1.1 gm/dL (3.4-5.0); CREATININE SERUM 2.52 mg/dL (0.70-1.30); GFR 24.81; MAGNESIUM 1.9 mg/dL (1.8-2.4); PHOSPHOROUS 3.5 mg/dL (2.5-4.9)
[2025-04-05 12:20] LABS: POTASSIUM 7.18 mEq/L (3.5-5.1)
[2025-04-05 15:30] VITALS: BP 155/80; O2SAT 100
[2025-04-05 21:49] LABS: CALCIUM 7.1 mg/dL (8.5-10.1); CREATININE SERUM 2.72 mg/dL (0.70-1.30); GFR 22.72; POTASSIUM 3.66 mEq/L (3.5-5.1)
[2025-04-06] MEDS ORDERED: METRONIDAZOLE/SODIUM CHLORIDE 500 MG/100 ML PIGGYBACK IV SCH (01:00)
[2025-04-06 01:41] VITALS: BP 171/83; O2SAT 98
[2025-04-06] MEDS ORDERED: hydrALAZINE HCL 20 MG VIAL IV SCH ×2 (08:06→12:00)
[2025-04-06] MEDS ORDERED: CEFEPIME HCL 2,000 MG VIAL IV SCH (09:00)
[2025-04-06 09:16] LABS: BASO % 0.2 % (0.1-1.2); EOS # 0.08 (0.04-0.54); EOS % 0.7 % (0.7-7.0); LYMPH # 1.05 (1.18-3.74); LYMPH % 8.7 % (19.3-53.1); MEAN CORPUSCULAR HEMOGLOBIN 29.4 pg (25.6-32.2); MONO # 0.68 (0.24-0.82); MONO % 5.6 % (4.7-12.5); NEUT # 10.16 (1.56-6.13); NEUT % 83.8 % (34.0-71.1); PLATELET COUNT 356 K/uL (163-369); RED BLOOD COUNT 2.82 M/uL (4.63-6.08); RED CELL DISTRIBUTION WIDTH 14.7 % (11.6-14.4)
[2025-04-06 09:41] LABS: HEMATOCRIT 24.4 % (40.1-51.0); HEMOGLOBIN 8.3 g/dL (13.7-17.5)
[2025-04-06 09:55] VITALS: BP 141/68; O2SAT 97
[2025-04-06 09:57] LABS: CREATININE SERUM 2.97 mg/dL (0.70-1.30); GFR 20.52; POTASSIUM 3.67 mEq/L (3.5-5.1)
[2025-04-06] MEDS ORDERED: SOD FERRIC GLUC COMPLX/SUCROSE 62.5 MG in 0.9 % SODIUM CHLORIDE 50 ML IV SCH (12:00)
[2025-04-06] MEDS ORDERED: PIPERACILLIN/TAZOBACTAM SODIUM 2.25 GM VIAL IV SCH (12:00)
[2025-04-06 17:44] VITALS: BP 124/66; O2SAT 98
[2025-04-06] MEDS ORDERED: 0.9 % SODIUM CHLORIDE 1,000 ML IV SCH (21:00)
[2025-04-06] MEDS ORDERED: PANTOPRAZOLE SODIUM 80 MG in 0.9 % SODIUM CHLORIDE 100 ML IV SCH (23:15)
[2025-04-07 00:42] VITALS: BP 134/69; O2SAT 93
[2025-04-07] MEDS ORDERED: SOD FERRIC GLUC COMPLX/SUCROSE 62.5 MG/5 ML AMPUL IV ONE (08:30)
[2025-04-07] MEDS ORDERED: EPOETIN ALFA-EPBX 10,000 UNIT/ML VIAL (Retacrit) SUBCUTANEO SCH (09:00)
[2025-04-07 10:05] VITALS: BP 91/58; O2SAT 98
[2025-04-07 17:10] VITALS: BP 122/70; O2SAT 97
[2025-04-07 21:12] LABS: PHOSPHOROUS 3.6 mg/dL (2.5-4.9)
[2025-04-08 00:53] VITALS: BP 138/72; O2SAT 95
[2025-04-08 08:15] VITALS: BP 129/74; O2SAT 97
[2025-04-08 12:07] LABS: BASO % 0.3 % (0.1-1.2); EOS # 0.23 (0.04-0.54); LYMPH # 1.39 (1.18-3.74); LYMPH % 12.1 % (19.3-53.1); MEAN CORPUSCULAR HEMOGLOBIN 28.3 pg (25.6-32.2); MONO # 0.99 (0.24-0.82); MONO % 8.6 % (4.7-12.5); NEUT # 8.72 (1.56-6.13); NEUT % 75.7 % (34.0-71.1); PLATELET COUNT 283 K/uL (163-369); RED BLOOD COUNT 2.69 M/uL (4.63-6.08); RED CELL DISTRIBUTION WIDTH 15.2 % (11.6-14.4)
[2025-04-08 12:23] LABS: HEMATOCRIT 23.2 % (40.1-51.0); HEMOGLOBIN 7.6 g/dL (13.7-17.5)
[2025-04-08] MEDS ORDERED: FUROsemide 20 MG/2 ML VIAL IV SCH (12:30)
[2025-04-08 12:42] LABS: INR 1.42
[2025-04-08 12:49] LABS: PROTHROMBIN TIME 15.1 SECONDS (9.0-11.5)
[2025-04-08 13:09] LABS: BILIRUBIN TOTAL 0.45 mg/dL (0.3-1.2); CALCIUM 6.7 mg/dL (8.5-10.1); GLOBULINA 3.5 G/DL (2.4-3.5); POTASSIUM 3.49 mEq/L (3.5-5.1); TOTAL PROTEIN 4.5 gm/dL (6.4-8.2)
[2025-04-08 14:06] LABS: GFR 12.97
[2025-04-08 14:07] LABS: CREATININE SERUM 4.42 mg/dL (0.70-1.30)
[2025-04-08 17:54] VITALS: BP 140/84; O2SAT 95
[2025-04-09] VITALS: BP 162/80; O2SAT 97
[2025-04-09 08:40] VITALS: BP 123/67; O2SAT 99
[2025-04-09 16:38] VITALS: BP 145/77; O2SAT 95
[2025-04-09] MEDS ORDERED: PIPERACILLIN/TAZOBACTAM SODIUM 4.5 GM VIAL IV SCH (17:00)
[2025-04-10 01:40] VITALS: BP 167/96
[2025-04-10 01:45] VITALS: BP 137/81; O2SAT 97
[2025-04-10 07:56] LABS: ALBUMIN 1.4 gm/dL (3.4-5.0); BILIRUBIN TOTAL 0.67 mg/dL (0.3-1.2); CALCIUM 7.4 mg/dL (8.5-10.1); GLOBULINA 4.5 G/DL (2.4-3.5); MAGNESIUM 2.1 mg/dL (1.8-2.4); PHOSPHOROUS 4.3 mg/dL (2.5-4.9); POTASSIUM 4.05 mEq/L (3.5-5.1); TOTAL PROTEIN 5.9 gm/dL (6.4-8.2)
[2025-04-10 08:20] LABS: BASO % 0.4 % (0.1-1.2); EOS # 0.27 (0.04-0.54); EOS % 1.7 % (0.7-7.0); HEMATOCRIT 33.8 % (40.1-51.0); HEMOGLOBIN 11.3 g/dL (13.7-17.5); LYMPH # 1.42 (1.18-3.74); LYMPH % 8.8 % (19.3-53.1); MEAN CORPUSCULAR HEMOGLOBIN 28.3 pg (25.6-32.2); MONO % 8.1 % (4.7-12.5); NEUT # 12.66 (1.56-6.13); NEUT % 78.8 % (34.0-71.1); PLATELET COUNT 376 K/uL (163-369); RED CELL DISTRIBUTION WIDTH 15.8 % (11.6-14.4)
[2025-04-10 08:34] VITALS: BP 90/60; O2SAT 94
[2025-04-10 09:53] LABS: GFR 10.12
[2025-04-10 09:55] LABS: CREATININE SERUM 5.48 mg/dL (0.70-1.30)
[2025-04-10] MEDS ORDERED: CITRIC ACID/SODIUM CITRATE 30 ML BLIST.PACK PO SCH (13:00)
[2025-04-10 13:43] VITALS: BP 100/64; O2SAT 90
[2025-04-10 17:01] VITALS: BP 114/72
[2025-04-11 02:16] VITALS: BP 141/79; O2SAT 95
[2025-04-11 08:59] VITALS: BP 118/75; O2SAT 92
[2025-04-11 16:25] VITALS: BP 115/70
[2025-04-12 01:14] VITALS: BP 136/80; O2SAT 98
[2025-04-12 06:47] LABS: BASO % 0.6 % (0.1-1.2); EOS # 0.15 (0.04-0.54); HEMATOCRIT 30.6 % (40.1-51.0); HEMOGLOBIN 10.2 g/dL (13.7-17.5); LYMPH # 1.25 (1.18-3.74); LYMPH % 8.7 % (19.3-53.1); MEAN CORPUSCULAR HEMOGLOBIN 28.6 pg (25.6-32.2); MONO # 0.68 (0.24-0.82); MONO % 4.7 % (4.7-12.5); NEUT % 83.2 % (34.0-71.1); PLATELET COUNT 322 K/uL (163-369); RED BLOOD COUNT 3.57 M/uL (4.63-6.08); RED CELL DISTRIBUTION WIDTH 16.9 % (11.6-14.4)
[2025-04-12 07:53] LABS: BILIRUBIN TOTAL 0.43 mg/dL (0.3-1.2); CALCIUM 7.2 mg/dL (8.5-10.1); GLOBULINA 3.8 G/DL (2.4-3.5); MAGNESIUM 2.1 mg/dL (1.8-2.4); PHOSPHOROUS 6.8 mg/dL (2.5-4.9); POTASSIUM 3.54 mEq/L (3.5-5.1); TOTAL PROTEIN 4.8 gm/dL (6.4-8.2)
[2025-04-12 07:55] VITALS: BP 134/83
[2025-04-12 08:19] LABS: GFR 7.48
[2025-04-12 08:20] LABS: CREATININE SERUM 7.12 mg/dL (0.70-1.30)
[2025-04-12] MEDS ORDERED: MEROPENEM 500 MG/VIAL VIAL IV NR (10:30)
[2025-04-12] MEDS ORDERED: SODIUM CHLORIDE 0.45 % 1,000 ML IV SCH (11:15)
[2025-04-13 00:37] VITALS: BP 107/58
[2025-04-13 08:18] VITALS: BP 144/70
[2025-04-13] MEDS ORDERED: CIPROFLOXACIN HCL 500 MG TABLET PO SCH (09:00)
[2025-04-13] MEDS ORDERED: MEROPENEM 500 MG/VIAL VIAL IV SCH (09:00)
[2025-04-13 16:00] VITALS: BP 106/55; O2SAT 92
[2025-04-14 01:06] VITALS: BP 120/74; O2SAT 97
[2025-04-14 08:00] VITALS: BP 153/77; O2SAT 97
[2025-04-14 17:03] VITALS: BP 117/82; O2SAT 96
[2025-04-15 00:39] VITALS: BP 158/67; O2SAT 94
[2025-04-15 08:00] VITALS: BP 138/66; O2SAT 94
[2025-04-15 11:31] LABS: BASO % 0.4 % (0.1-1.2); EOS # 0.08 (0.04-0.54); EOS % 0.4 % (0.7-7.0); HEMATOCRIT 28.8 % (40.1-51.0); HEMOGLOBIN 9.3 g/dL (13.7-17.5); LYMPH # 0.96 (1.18-3.74); LYMPH % 5.2 % (19.3-53.1); MEAN CORPUSCULAR HEMOGLOBIN 28.2 pg (25.6-32.2); MONO # 0.72 (0.24-0.82); MONO % 3.9 % (4.7-12.5); NEUT # 16.02 (1.56-6.13); NEUT % 86.4 % (34.0-71.1); PLATELET COUNT 311 K/uL (163-369); RED CELL DISTRIBUTION WIDTH 18.7 % (11.6-14.4)
[2025-04-15 12:54] LABS: ALBUMIN 1.2 gm/dL (3.4-5.0); BILIRUBIN TOTAL 0.43 mg/dL (0.3-1.2); CALCIUM 7.2 mg/dL (8.5-10.1); MAGNESIUM 2.2 mg/dL (1.8-2.4); PHOSPHOROUS 7.9 mg/dL (2.5-4.9); POTASSIUM 3.73 mEq/L (3.5-5.1); TOTAL PROTEIN 5.2 gm/dL (6.4-8.2)
[2025-04-15 13:04] LABS: GFR 6.49
[2025-04-15 13:25] LABS: CREATININE SERUM 8.05 mg/dL (0.70-1.30)
[2025-04-15 16:39] VITALS: BP 87/53; O2SAT 90
[2025-04-16 02:09] VITALS: BP 105/68
[2025-04-16] MEDS ORDERED: DEXTROSE 5 %-0.45 % SOD CHLORD 1,000 ML IV SCH (07:45)
[2025-04-16] MEDS ORDERED: RINGERS SOLUTION,LACTATED 1,000 ML IV SCH (07:45)
[2025-04-16 09:17] VITALS: BP 88/42; O2SAT 87
== END 2025-04-16 16:15 | disposition expired | DRG 682 ==
LOC: ER 19:01 → MEDI 23:21
PROVIDERS: General Practice; Internal Medicine; Internal Medicine Infectious Disease; Internal Medicine Nephrology; Student in an Organized Health Care Education/Training Program; ADMIT Internal Medicine; ATTEND Internal Medicine
PROC: B020ZZZ Computerized Tomography (CT Scan) of Brain (ICD-10-PCS; 2025-03-08)
PROC: 3E0F7GC Introduction of Other Therapeutic Substance into Respiratory Tract, Via Natural or Artificial Opening (ICD-10-PCS; 2025-03-09)
PROC: BW24ZZZ Computerized Tomography (CT Scan) of Chest and Abdomen (ICD-10-PCS; 2025-03-23)
PROC: 02HV33Z Insertion of Infusion Device into Superior Vena Cava, Percutaneous Approach (ICD-10-PCS; 2025-03-25)
PROC: 0HB6XZZ Excision of Back Skin, External Approach (ICD-10-PCS; principal; 2025-04-05)
PROC: 30243N1 Transfusion of Nonautologous Red Blood Cells into Central Vein, Percutaneous Approach (ICD-10-PCS; 2025-04-08)
DX: N17.9 Acute kidney failure, unspecified (principal); A41.9 Sepsis, unspecified organism; L89.153 Pressure ulcer of sacral region, stage 3; L89.154 Pressure ulcer of sacral region, stage 4; G93.41 Metabolic encephalopathy; J69.0 Pneumonitis due to inhalation of food and vomit; R65.10 Systemic inflammatory response syndrome (SIRS) of non-infectious origin without acute organ dysfunction; E87.0 Hyperosmolality and hypernatremia; N39.0 Urinary tract infection, site not specified; I96 Gangrene, not elsewhere classified; G30.9 Alzheimer's disease, unspecified; F02.80 Dementia in other diseases classified elsewhere, unspecified severity, without behavioral disturbance, psychotic disturbance, mood disturbance, and anxiety; E03.9 Hypothyroidism, unspecified; I10 Essential (primary) hypertension; R13.10 Dysphagia, unspecified; N18.6 End stage renal disease; E86.0 Dehydration; B96.5 Pseudomonas (aeruginosa) (mallei) (pseudomallei) as the cause of diseases classified elsewhere; Z66 Do not resuscitate; R09.02 Hypoxemia; D64.9 Anemia, unspecified; R69 Illness, unspecified